=== PATIENT | male | born 1960 | race Two or more races ===

== ENCOUNTER 2019-10-21 13:02 | Inpatient (IN) | payer OTHER ==
[~2019-10-21] VITALS: Ht 185.4 cm; Wt 91.1 kg
[2019-10-21] MEDS ORDERED: methylPREDNISolone SOD SUCC 125 MG/2 ML VL IV ONE (13:30)
[2019-10-21] MEDS ORDERED: ALBUTEROL SULF 2.5 MG/0.5ML(0.5%) NEB SOLN NEB ONE (13:30)
[2019-10-21] MEDS ORDERED: IPRATROPIUM BROM 0.5 MG/2.5ML INH SOL NEB ONE (13:30)
[2019-10-21 14:25] LABS: Basophils # (auto) 0.1 10 ^3/uL (0-0.2); Eosinophils # (auto) 0 10 ^3/uL (0-0.8); Lymphocytes # (auto) 1.6 10 ^3/uL (0.4-5.4); Monocytes # (auto) 0.9 10 ^3/uL (0-1.3); Monocytes % (auto) 7.7 % (0.0-12.0)
[2019-10-21 14:27] LABS: Basophils % (auto) 0.9 % (0.0-2.0); Eosinophils % (auto) 0.2 % (0.0-7.0); Hemoglobin 13.9 g/dL (13.5-17.5); Lymphocytes % (auto) 13.6 % (10.0-50.0); Mean Corpuscular Hemoglobin 26.4 pg (28.0-32.0); Mean Corpuscular Hgb Conc. 31.6 g/dL (32.0-36.0); Mean Corpuscular Volume 83.5 fL (80.0-100.0); Neutrophils % (auto) 77.6 % (37.0-80.0); Platelet Count (auto) 305 10^3/uL (140-450); Red Blood Cells 5.27 10^6/uL (4.5-5.90); White Blood Cell 11.6 10^3/uL (4.4-10.8)
[2019-10-21 14:44] LABS: Albumin 2.7 g/dL (3.4-5.0); BUN/Creatinine Ratio 22.4; Calcium 8.2 mg/dL (8.5-10.1); Potassium 4.6 mmol/L (3.5-5.1)
[2019-10-21 14:47] LABS: INR 1.34 (0.9-1.15); Partial Thromboplastin Time 27.1 sec (23.64-32.05)
[2019-10-21 14:48] LABS: Bilirubin, Total 1.1 mg/dL (0.2-1.0); Total Protein 6.5 g/dL (6.4-8.2)
[2019-10-21] MEDS ORDERED: ENOXAPARIN SOD 100 MG/1 ML SYRINGE SC ONE (15:30)
[2019-10-21] MEDS ORDERED: IOHEXOL 350 MG/ML 100ML IJ ONE (15:54)
[2019-10-21] MEDS ORDERED: FUROSEMIDE 20 MG/2 ML VIAL IV ONE (18:00)
[2019-10-21] MEDS ORDERED: DexAMETHasone SOD PHOS 10MG/1ML VIAL INJ IV ONE (18:00)
[2019-10-21] MEDS ORDERED: NITROGLYCERIN 0.4 MG SL TAB SL PRN (19:30)
[2019-10-21] MEDS ORDERED: ONDANSETRON HCL 4 MG/2 ML VIAL IV PRN (19:30)
[2019-10-21] MEDS ORDERED: TEMAZEPAM 15 MG CAP PO PRN (19:30)
[2019-10-21] MEDS ORDERED: ACETAMINOPHEN 325 MG TAB PO PRN (19:30)
[2019-10-21] MEDS ORDERED: METOPROLOL TARTRATE 25 MG TAB PO ONE (19:30)
[2019-10-21] MEDS ORDERED: MORPHINE SULF INJ 2 MG/ML SYRINGE 1ML IV PRN (19:30)
[2019-10-21 22:35] VITALS: BP 142/92
--- NOTE | 2019-10-21 22:35 | NUR ---
Opening noteTelemetry admit from KYLEE G[facility]MEZ admitted to Telemetry unit after SBAR received. Patient oriented to ELLIS PAZ, RN primary RN, unit, room, bed, and unit policies regarding patient care and visiting hours. Patient now on continuous telemetry monitoring, tele box #7 and telemetry reading on arrival to unit is sinus tachy 104 HR. Patient placed on bedside oxygen, weighed by bedscale and encouraged to call if they need something. All questions and concerns addressed, patient verbalized understanding.
[2019-10-21] MEDS: ATORVASTATIN 20 MG TAB PO SCH (22:41)
[2019-10-21] MEDS: FAMOTIDINE 20 MG TAB PO SCH (22:41)
[2019-10-22] VITALS: BP 143/92
--- NOTE | 2019-10-22 04:16 | NUR ---
Closing note Patient is covid negative, gave sbar report to Lulu ERAZO, patient to be transferred to room 221. Patient and all of his belongings were sent with him. No sob or distress noted, Patient verbalized understanding of transfer, no questions at this time.
--- NOTE | 2019-10-22 04:20 | NUR ---
Received 59 y.o male pt from [facility] after receiving report from CASRTO Caceres. Pt awake and alert and oriented x4. Transfered to 221A via w/c. Carroll activity well. Immediately connected to O2 at 3.5 lpm via n/c. Pt able to transfer independently from w/c to bed. Bed in low position with HOB in Mcintosh's. Nurse call light attached to L HOB rail.
--- NOTE | 2019-10-22 04:55 | NUR ---
R breath sounds more increased than L with occ scattered rales. L lower lobe clear and diminished with upper lobe clear ant. Pt slowly talking more. Initially confused as to location. Pt knew he was in the hospital, but thought it was down the hill. Easily reoriented. BS soft and active to rounded soft abd. BLEs edematous with 1-2+ pitting in L lower leg and both ankles tight with hyperpigmention bilat.
[2019-10-22] MEDS: FUROSEMIDE 20 MG/2 ML VIAL IV SCH ×2 (06:20→18:00)
--- NOTE | 2019-10-22 07:30 | NUR ---
Opening Shift Note Assuming care of patient at this time. Patient is awake and alert. Patient denies pain. Patient shows no signs or symptoms of distress or shortness of breath. Bed is locked and lowered with side rails up x2. Instructed patient on the plan of care for today and to call for assistance as needed. Call light within reach. Will continue to round hourly and as needed.
[2019-10-22 09:00] VITALS: BP 143/90
[2019-10-22] MEDS: FAMOTIDINE 20 MG TAB PO SCH ×2 (09:28→22:28)
[2019-10-22] MEDS: ASPirin 81 mg TAB PO SCH (09:30)
[2019-10-22] MEDS: ENOXAPARIN SOD 40 MG/0.4 ML SYRINGE SC SCH (09:30)
[2019-10-22 09:42] LABS: Basophils # (auto) 0 10 ^3/uL (0-0.2); Eosinophils # (auto) 0 10 ^3/uL (0-0.8); Lymphocytes # (auto) 0.7 10 ^3/uL (0.4-5.4); Lymphocytes % (auto) 9.9 % (10.0-50.0); Mean Corpuscular Volume 84.7 fL (80.0-100.0); Monocytes # (auto) 0.4 10 ^3/uL (0-1.3); Monocytes % (auto) 5.2 % (0.0-12.0); Nucleated Red Blood Cells % 0.1 %; Red Cell Distribution Width 19.2 % (11.8-14.3)
[2019-10-22 09:44] LABS: Basophils % (auto) 0.2 % (0.0-2.0); Hematocrit 48.9 % (41.0-53.0); Hemoglobin 15.7 g/dL (13.5-17.5); Mean Corpuscular Hemoglobin 27.2 pg (28.0-32.0); Mean Corpuscular Hgb Conc. 32.1 g/dL (32.0-36.0); Neutrophils # (auto) 6.2 10 ^3/uL (1.6-8.6); Neutrophils % (auto) 84.7 % (37.0-80.0); Platelet Count (auto) 298 10^3/uL (140-450); Red Blood Cells 5.77 10^6/uL (4.5-5.90); White Blood Cell 7.3 10^3/uL (4.4-10.8)
[2019-10-22 10:07] LABS: BUN/Creatinine Ratio 20.7; Calcium 8.5 mg/dL (8.5-10.1); Potassium 4.3 mmol/L (3.5-5.1)
[2019-10-22] MEDS: METOPROLOL TARTRATE 50 MG TAB PO SCH ×2 (10:32→22:27)
[2019-10-22 13:00] VITALS: BP 111/70
[2019-10-22 17:00] VITALS: BP 97/59
[2019-10-22] MEDS: SPIRONOLACTONE 25 MG TAB PO SCH (18:26)
[2019-10-22] MEDS: Glucerna Carbsteady SHAKE Vanilla 8oz PO SCH (18:35)
--- NOTE | 2019-10-22 19:07 | NUR ---
Closing Shift Note Patient resting in bed. No distress noted. Report given. Will endorse care to the material handler 2nd shift RN.
--- NOTE | 2019-10-22 19:30 | NUR ---
Opening Shift Note Assumed care of patient, awake and alert reclining on L side watching television. RN noted pt taking deep breaths and widening eyes as if in discomfort or apprehensive. Pt denied pain or worry stating, "I am just full... and I didn't even eat it all." No other S/S of distress/SOB or pain; pt requiring no O2. Instructed on POC and to call for assist PRN; pt VU. RN will continue to monitor for changes Q1hr and PRN. Bed in low position with HOB in semi-Phillips's position. Nurse call light within pt's reach.
[2019-10-22 22:00] VITALS: BP 136/90
[2019-10-22] MEDS: ATORVASTATIN 20 MG TAB PO SCH (22:27)
--- NOTE | 2019-10-23 01:50 | NUR ---
Pt walking out of room into hallway; guided back to his room by hospital personnel. This RN responded to pt's room asking him where he was going. Pt replied that he was looking for / waiting on his grandfather. Informed pt that he is in [facility] and his grandfather is not here. Pt surprised. RN gave standby assist at pt returned to his bed; RN applied O2 via n/c. O2 sat 86. O2 at 3.5 lpm. Pt dropping off to sleep. BP 108/62 HR 88, RR 16. O2 sat increased after several minutes to 96 as long as pt breathing through nose. RN reminding pt twice to do this. Pt reclined in bed on R side and fell asleep. Low light in room and BR to help orient pt upon his awakening.
--- NOTE | 2019-10-23 03:05 | NUR ---
Called to pt's room by CASTRO Wiseman who stated pt's call light went on and he entered room to find pt unable to answer questions. Pt not answering questions for this RN or for fellow RN. Unable to state his name or anything else, grunts then resumes sleep. Color dusky. O2 sat 84; hands cold. Notified CASTRO Dolan,CN who responded to room as well as other RNs and CNAs. BG 171. Pt mouth breathing heavily; O2 sat remaining in mid 80s. RT paged to room. Heat packs given to pt to hold. This RN had covered pt prev with two blankets neither of which were on pt at this time. Pt voided in bed. HOB raised, pt beginning to rouse more with O2 placed between lips. Lewis Noonan, in to room. This RN supplying staff with pt's hx and current dx and meds. Team observed pt who began to smile and able to answer questions with increasing thoroughness. RT stated he will look in on pt freq for remainder of shift. NABIL and Lewis Obando left room. Pt has no drugs among his belonging in his bedside drawers.
[2019-10-23 05:21] VITALS: BP 108/83
[2019-10-23] MEDS: SPIRONOLACTONE 25 MG TAB PO SCH ×2 (05:25→18:30)
[2019-10-23] MEDS: FUROSEMIDE 20 MG/2 ML VIAL IV SCH ×2 (05:25→18:20)
[2019-10-23 06:36] LABS: Basophils # (auto) 0 10 ^3/uL (0-0.2); Eosinophils # (auto) 0 10 ^3/uL (0-0.8); Mean Corpuscular Hemoglobin 26.7 pg (28.0-32.0); White Blood Cell 9.3 10^3/uL (4.4-10.8)
[2019-10-23 06:39] LABS: Basophils % (auto) 0.2 % (0.0-2.0); Eosinophils % (auto) 0.1 % (0.0-7.0); Hematocrit 47.4 % (41.0-53.0); Hemoglobin 14.9 g/dL (13.5-17.5); Lymphocytes # (auto) 1.3 10 ^3/uL (0.4-5.4); Lymphocytes % (auto) 13.5 % (10.0-50.0); Mean Corpuscular Hgb Conc. 31.5 g/dL (32.0-36.0); Mean Corpuscular Volume 84.8 fL (80.0-100.0); Monocytes # (auto) 0.8 10 ^3/uL (0-1.3); Monocytes % (auto) 8.1 % (0.0-12.0); Neutrophils # (auto) 7.3 10 ^3/uL (1.6-8.6); Neutrophils % (auto) 78.1 % (37.0-80.0); Nucleated Red Blood Cells % 0.1 %; Platelet Count (auto) 238 10^3/uL (140-450); Red Blood Cells 5.59 10^6/uL (4.5-5.90); Red Cell Distribution Width 19.1 % (11.8-14.3)
[2019-10-23 06:47] LABS: Potassium 4.8 mmol/L (3.5-5.1)
--- NOTE | 2019-10-23 07:00 | NUR ---
22g cath used to start second saline lock on first attempt at R post. forearm. Pt kylee. well. After lock inserted and taped, pt having episode of gasping for breaths using mouth totally to breathe. This RN coaching him to close his mouth and breathe through his nose. Pt instead pushed n/c up against nose and brought breathing into calmer slower state then resumed sleep. Will endorse to day RN.
[2019-10-23 07:02] LABS: BUN/Creatinine Ratio 31.1; Calcium 8.4 mg/dL (8.5-10.1)
--- NOTE | 2019-10-23 07:30 | NUR ---
Opening Shift Note Assuming care of patient at this time. Patient is resting in bed with eyes closed. Patient shows no signs or symptoms of distress or shortness of breath. Bed is locked and lowered with side rails up x2. Will continue to round hourly and as needed.
[2019-10-23] MEDS: Glucerna Carbsteady SHAKE Vanilla 8oz PO SCH ×3 (08:00→18:30)
[2019-10-23] MEDS ORDERED: ADENOSINE 90 MG in GIVE UN-DILUTED 0 ML IV STA (08:30)
[2019-10-23 09:16] VITALS: BP 125/75
[2019-10-23] MEDS: ENOXAPARIN SOD 40 MG/0.4 ML SYRINGE SC SCH (10:00)
[2019-10-23] MEDS: FAMOTIDINE 20 MG TAB PO SCH ×2 (10:00→22:19)
[2019-10-23] MEDS: METOPROLOL TARTRATE 50 MG TAB PO SCH ×2 (10:00→22:19)
[2019-10-23] MEDS: ASPirin 81 mg TAB PO SCH (10:00)
[2019-10-23 12:52] VITALS: BP 139/94
[2019-10-23 17:03] VITALS: BP 138/89
--- NOTE | 2019-10-23 19:40 | NUR ---
Opening Shift Note Assumed care of patient, awake and alert. No S/S of distress/SOB or pain. Instructed on POC and to call for assist PRN, will continue to monitor for changes Q1hr and PRN.
--- NOTE | 2019-10-23 19:47 | NUR ---
Closing Shift Note Patient resting in bed with eyes closed. No distress noted. Report given. Will endorse care to the sales development associate RN.
[2019-10-23 22:00] VITALS: BP 124/73
[2019-10-23] MEDS: ATORVASTATIN 20 MG TAB PO SCH (22:20)
[2019-10-24 05:00] VITALS: BP 119/80
[2019-10-24] MEDS: FUROSEMIDE 20 MG/2 ML VIAL IV SCH ×2 (05:33→18:07)
[2019-10-24] MEDS: SPIRONOLACTONE 25 MG TAB PO SCH ×2 (05:46→18:08)
[2019-10-24 06:20] LABS: Basophils # (auto) 0 10 ^3/uL (0-0.2); Eosinophils # (auto) 0 10 ^3/uL (0-0.8); Lymphocytes # (auto) 1.3 10 ^3/uL (0.4-5.4); Mean Corpuscular Volume 84.4 fL (80.0-100.0); Neutrophils % (auto) 74.2 % (37.0-80.0); Nucleated Red Blood Cells % 0.1 %; Red Cell Distribution Width 19.3 % (11.8-14.3)
[2019-10-24 06:23] LABS: Basophils % (auto) 0.6 % (0.0-2.0); Eosinophils % (auto) 0.1 % (0.0-7.0); Hematocrit 47.3 % (41.0-53.0); Lymphocytes % (auto) 16.5 % (10.0-50.0); Mean Corpuscular Hemoglobin 26.7 pg (28.0-32.0); Mean Corpuscular Hgb Conc. 31.7 g/dL (32.0-36.0); Monocytes # (auto) 0.7 10 ^3/uL (0-1.3); Monocytes % (auto) 8.6 % (0.0-12.0); Neutrophils # (auto) 5.8 10 ^3/uL (1.6-8.6); Platelet Count (auto) 215 10^3/uL (140-450); Red Blood Cells 5.61 10^6/uL (4.5-5.90); White Blood Cell 7.8 10^3/uL (4.4-10.8)
[2019-10-24 06:37] LABS: Calcium 8.3 mg/dL (8.5-10.1); Potassium 4.5 mmol/L (3.5-5.1)
[2019-10-24 06:42] LABS: BUN/Creatinine Ratio 31.5
[2019-10-24] MEDS: Glucerna Carbsteady SHAKE Vanilla 8oz PO SCH (08:00)
[2019-10-24 09:00] VITALS: BP 124/78
[2019-10-24] MEDS: FAMOTIDINE 20 MG TAB PO SCH ×2 (10:00→21:32)
[2019-10-24] MEDS: ENOXAPARIN SOD 40 MG/0.4 ML SYRINGE SC SCH (10:00)
[2019-10-24] MEDS: METOPROLOL TARTRATE 50 MG TAB PO SCH ×2 (11:11→21:36)
[2019-10-24] MEDS: ASPirin 81 mg TAB PO SCH (11:11)
[2019-10-24 13:00] VITALS: BP 142/100
[2019-10-24] MEDS ORDERED: LORazepam 2MG/ML-1ML VIAL IV ONE (13:30)
[2019-10-24] MEDS ORDERED: LEVOTHYROXINE SODIUM 25 MCG TAB PO ONE (13:30)
[2019-10-24 17:00] VITALS: BP 113/72
[2019-10-24] MEDS: Ensure Enlive Strawberry 8oz Bottle PO SCH (18:09)
--- NOTE | 2019-10-24 19:31 | NUR ---
Closing Shift Note Patient resting in bed with eyes closed. No distress noted. Report given. Will endorse care to the car shifter RN.
--- NOTE | 2019-10-24 19:35 | NUR ---
Communicated to dr gray of clarification on new order of Eliquis 2.5 mg and MRI results of stroke, if its ok to give eliquis. MD Gray advised to continue with order of Eliquis. Confirmed with MD Gray its ok to give. Also spoke to [facility] if its ok to give Eliquis and notified her of MRI results. [facility] said it was ok to give Eliquis. will carry out.
[2019-10-24 21:21] VITALS: BP 109/71
[2019-10-24] MEDS: APIXABAN 2.5 MG TAB PO SCH (21:32)
[2019-10-24] MEDS: ATORVASTATIN 20 MG TAB PO SCH (21:33)
[2019-10-25 05:00] VITALS: BP 121/86
[2019-10-25] MEDS: FUROSEMIDE 20 MG/2 ML VIAL IV SCH ×2 (05:59→18:00)
[2019-10-25] MEDS: SPIRONOLACTONE 25 MG TAB PO SCH ×2 (05:59→18:00)
[2019-10-25] MEDS: LEVOTHYROXINE SODIUM 25 MCG TAB PO SCH (06:23)
--- NOTE | 2019-10-25 07:30 | NUR ---
Opening Shift Note Assumed patient care from MARINA ERAZO. Patient currently laying on left side, no signs of distress. Respirations even and unlabored, patient denies shortness of breath at this time. Patient encouraged to use nasal canula, verbalized understanding but is refusing at this time. Safety precautions in place. Bed is locked and in lowest position, call light within reach. Will continue to monitor. Addendum: 10/26/19 at 1530 by CHIKIS SANCHEZ RN RN Patient's speech is clear/understandable although some slurring is noted (since 10/22 MARINA)
[2019-10-25] MEDS: Ensure Enlive Strawberry 8oz Bottle PO SCH ×2 (08:00→18:14)
[2019-10-25 09:00] VITALS: BP 119/76
[2019-10-25 09:07] LABS: Cholesterol 83 mg/dL (< 200); HDL Cholesterol 30 mg/dL (40-59); LDL Cholesterol 53 mg/dL (< 100); Triglycerides 86 mg/dL (< 150)
[2019-10-25] MEDS: APIXABAN 2.5 MG TAB PO SCH ×2 (10:25→21:39)
[2019-10-25] MEDS: METOPROLOL TARTRATE 50 MG TAB PO SCH ×2 (10:26→21:41)
[2019-10-25] MEDS: FAMOTIDINE 20 MG TAB PO SCH ×2 (10:26→21:41)
--- NOTE | 2019-10-25 11:30 | NUR ---
Patient rounds Patient currently laying supine in bed, denies pain and shortness of breath at this time. Patient is AOx4 and restless, but states he does not need anything at this time. Patient reminded on and educated about need for urine sample, patient verbalized understanding. Safety precautions in place, respirations even and unlabored, will continue to monitor.
[2019-10-25 13:00] VITALS: BP 112/64
--- NOTE | 2019-10-25 15:45 | NUR ---
Called Manager Development SS Spoke with Amada regarding patient's social service consult. Per Amada, Star with be speaking with patient regarding insurance status.
--- NOTE | 2019-10-25 15:58 | NUR ---
Nutrition Assessment Notes Please refer to link for full assessment notes. Est Energy needs: 2633-5406 kcals (23-25 kcal/kgBW) Est Protein needs: 114-140 gms/day (1.12-1.37 gm/kgBW) Will continue to monitor and reassess prn. Addendum: 10/25/19 at [address] Amended: Links added.
[2019-10-25 17:00] VITALS: BP 125/68
--- NOTE | 2019-10-25 17:31 | NUR ---
Family Spoke with patient's family regarding plan of care. Patient states he does not remember what happened on 10/22, states MD has not discussed diagnosis with him. Family educated that MD will discuss patient's diagnosis with patient/family and that it is outside of RN scope of practice to diagnose. Family and patient aware and verbalized understanding, patient/family aware of neuro consult that was placed and patient's requesting to speak with neurologist. Will notify neurologist.
--- NOTE | 2019-10-25 18:08 | NUR ---
Refused Meds Patient refusing medications at this time. States he wants to speak with a doctor before continuing with treatments. Patient is AOx4, arousable to name and able to follow directions. +4 strength of all extremities. Safety precautions in place, patient reoriented to call light and encouraged to call as needed. Will continue to monitor.
--- NOTE | 2019-10-25 18:33 | NUR ---
Urine Sample Sent Obtained urine sample, sent to labRoland powell.
[2019-10-25 20:00] VITALS: BP 125/68
[2019-10-25 20:37] LABS: Urine Bacteria NONE SEEN /hpf (None Seen); Urine Blood Negative /uL (Negative); Urine Specific Gravity 1.021 (1.001-1.035); Urine WBC 1 /hpf (0 - 3)
[2019-10-25 20:44] LABS: Alcohol, Urine < 3.0 mg/dL (0-10); Amphetamine Screen, Urine NEGATIVE (NEGATIVE); Barbiturate Scree,Urine NEGATIVE (NEGATIVE); Benzodiazephine Screen, Urine NEGATIVE (NEGATIVE); Cannabinoid Screen, Urine NEGATIVE (NEGATIVE); Cocaine Screen, Urine NEGATIVE (NEGATIVE); Opiate Scree,Urine NEGATIVE (NEGATIVE); Phencyclidine Screen, Urine NEGATIVE (NEGATIVE)
[2019-10-25] MEDS: ATORVASTATIN 20 MG TAB PO SCH (21:41)
--- NOTE | 2019-10-25 22:00 | NUR ---
PT GIVEN BEDBATH WITH NEW GOWN AND CLEAN LINEN. DENIES PAIN. WILL CONTINUE TO MONITOR.
[2019-10-25 22:19] VITALS: BP 123/81
[2019-10-26 05:00] VITALS: BP 113/75
[2019-10-26] MEDS: FUROSEMIDE 20 MG/2 ML VIAL IV SCH (06:17)
[2019-10-26] MEDS: SPIRONOLACTONE 25 MG TAB PO SCH ×2 (06:17→17:54)
[2019-10-26] MEDS: LEVOTHYROXINE SODIUM 25 MCG TAB PO SCH (06:17)
--- NOTE | 2019-10-26 06:50 | NUR ---
PT REFUSES TO WEAR GOWN. COVERED WITH A BLANKET. CALL LIGHT IN REACH WITH OXYGEN ON.
--- NOTE | 2019-10-26 07:30 | NUR ---
Opening Shift Note Assumed patient care from [facility] RN, [place]. Patient currently laying on right side. Answers questions appropriately. Patient is AOx4 but has periods of forgetfulness, RN asked patient if he remembered speaking with Dr. Duffy, patient states he remembers speaking with MD but states he does not recall content of conversation. Patient call light within reach, patient encouraged to call PRN. Safety precautions in place, will continue to monitor.
--- NOTE | 2019-10-26 07:32 | NUR ---
REPORT GIVEN TO CHIKIS ERAZO.
[2019-10-26 07:57] LABS: Calcium 8.5 mg/dL (8.5-10.1); Potassium 4.4 mmol/L (3.5-5.1)
[2019-10-26 08:00] LABS: BUN/Creatinine Ratio 34.6
[2019-10-26 09:00] VITALS: BP 111/79
--- NOTE | 2019-10-26 09:50 | NUR ---
at Station Spoke with Dr. Gray regarding possible left heart cath tomorrow. Per MD, no intervention until patient is stable, no plan for left heart cath tomorrow at this time.
[2019-10-26] MEDS: APIXABAN 2.5 MG TAB PO SCH ×2 (09:51→22:15)
[2019-10-26] MEDS: METOPROLOL TARTRATE 50 MG TAB PO SCH ×2 (09:51→22:16)
[2019-10-26] MEDS: FAMOTIDINE 20 MG TAB PO SCH ×2 (09:51→22:16)
[2019-10-26] MEDS: Ensure Enlive Strawberry 8oz Bottle PO SCH ×2 (09:52→17:54)
--- NOTE | 2019-10-26 11:00 | NUR ---
Up with PT Patient ambulated around station with physical therapist. No sign of distress at this time.
[2019-10-26] MEDS ORDERED: DOCUSATE SOD 100 MG CAP PO PRN (12:00)
[2019-10-26 13:00] VITALS: BP 103/76
--- NOTE | 2019-10-26 15:24 | NUR ---
at Bedside Dr. Knapp at bedside discussing plan of care with patient. Dr. Knapp re-explained to patient that he had a stroke and that we are pending possible angiogram. Patient verbalized understanding. MD informed patient and this RN that she had spoke with his next of kin regarding patient status and plan of care. Patient shows no signs of distress at this time, respirations even and unlabored. Patient is AOx4, although speech continues to be slurred but clear/understandable. Will continue to monitor.
[2019-10-26 16:57] VITALS: BP 118/84
--- NOTE | 2019-10-26 19:10 | NUR ---
opening note pt AxO to self, place, and situation. confused to time. respirations even and nonlabored on 2L nc. pt denies pain or discomfort at this time, will continue to monitor. pt is ambulatory. POC discussed, pt verbalized understanding . bed in low locked position, call light within reach.
[2019-10-26] MEDS: ATORVASTATIN 20 MG TAB PO SCH (22:15)
[2019-10-26] MEDS: ENALAPRIL MALEATE 2.5 MG TAB PO SCH (22:17)
[2019-10-27 05:05] VITALS: BP 116/78
[2019-10-27] MEDS: SPIRONOLACTONE 25 MG TAB PO SCH ×2 (05:58→17:50)
[2019-10-27] MEDS: LEVOTHYROXINE SODIUM 25 MCG TAB PO SCH (05:59)
--- NOTE | 2019-10-27 07:00 | NUR ---
Opening Shift Note Assumed patient care from NOC RN. Patient currently resting with eyes closed, laying on right side. Respirations even and unlabored, no signs of distress at this time. Safety precautions in place. Will continue to monitor.
--- NOTE | 2019-10-27 07:01 | NUR ---
closing note pt resting in left lateral position with eyes closed. respirations even and nonlabored on 2Lnc. no s/s of pain or discomfort. endorsed care to day shift RN Vero. bed in low locked position, call light within reach.
[2019-10-27 09:21] VITALS: BP 127/69
[2019-10-27] MEDS ORDERED: PHYTONADIONE(VitK) ORAL Susp 10mg/10ml(1mg/ml) PO ONE (09:30)
--- NOTE | 2019-10-27 09:40 | NUR ---
Attempted PT treatment, pt requested PM treatment due to fatigue. Will attempt again this afternoon.
[2019-10-27] MEDS: FUROSEMIDE 20 MG/2 ML VIAL IV SCH (09:58)
[2019-10-27] MEDS: APIXABAN 2.5 MG TAB PO SCH ×2 (09:59→21:59)
[2019-10-27] MEDS: ENALAPRIL MALEATE 2.5 MG TAB PO SCH ×2 (09:59→22:00)
[2019-10-27] MEDS: METOPROLOL TARTRATE 50 MG TAB PO SCH ×2 (09:59→21:59)
[2019-10-27] MEDS: FAMOTIDINE 20 MG TAB PO SCH ×2 (09:59→22:00)
--- NOTE | 2019-10-27 10:00 | NUR ---
at bedside Dr. Walton at bedside discussing plan of care with patient.
[2019-10-27] MEDS: Ensure Enlive Strawberry 8oz Bottle PO SCH ×2 (11:33→17:51)
[2019-10-27 13:00] VITALS: BP 113/71
--- NOTE | 2019-10-27 13:53 | NUR ---
Ambulated Patient ambulated in hallway with physical therapy.
--- NOTE | 2019-10-27 14:26 | NUR ---
assessment re: ss consult no insurance Patient is a 59 year old male who is alert and oriented. Prior to admission patient lived home with friends and functioned independently. Patient informed me he is able to care for his own ADLs. Per patient he will return home to his prior living arrangements post discharge and will have transport home. Patient has no insurance. Patient has been assessed by Star Nobles of [facility]. Per Star patients Medi-opal is pending. I have provided patient with resources for [facility], Dr. Briscoe, and [facility] urgent care for follow up visits. I have provided patient with a prescription card from community assistance program. I informed patient his post discharge needs to be determined prior to discharge. I informed patient he has a right to speak to a rn social work regarding all care. I informed patient he has a right to participate in any and all discharge planning. Patient does not have a POA and advanced directive. I have offered patient information on POA and advanced directives. I informed the patient the advantages and benefits of having an Advanced Directive. Patient verbalized understanding and agreed to discharge plan. Addendum: 10/27/19 at 1430 by Amada HARVEY Amended: Links added.
--- NOTE | 2019-10-27 15:46 | NUR ---
Informed Consent Patient unable to sign informed consent at this time; requesting to speak with Dr. Gray regarding procedure/questions. Patient AOx4, no signs of distress at this time, respirations even and unlabored. Will continue to monitor.
[2019-10-27 17:00] VITALS: BP 121/73
--- NOTE | 2019-10-27 18:46 | NUR ---
at Station Dr. Duffy at station, discussed POC.
--- NOTE | 2019-10-27 19:00 | NUR ---
Assumed patient care Patient currently resting with eyes closed, laying on left side. Respirations even and unlabored, no signs of distress or pain at this time. Safety precautions in place. Instructed on POC and to call for assist PRN, will continue to monitor.
[2019-10-27] MEDS: ATORVASTATIN 20 MG TAB PO SCH (21:59)
[2019-10-27 22:00] VITALS: BP 99/64
[2019-10-28 05:00] VITALS: BP 119/78
[2019-10-28] MEDS: SPIRONOLACTONE 25 MG TAB PO SCH (05:58)
[2019-10-28] MEDS: LEVOTHYROXINE SODIUM 25 MCG TAB PO SCH (05:59)
[2019-10-28 06:55] LABS: Basophils # (auto) 0 10 ^3/uL (0-0.2); Basophils % (auto) 0.4 % (0.0-2.0); Eosinophils # (auto) 0.1 10 ^3/uL (0-0.8); Eosinophils % (auto) 0.8 % (0.0-7.0); Hematocrit 45.1 % (41.0-53.0); Hemoglobin 14.9 g/dL (13.5-17.5); Lymphocytes # (auto) 1.5 10 ^3/uL (0.4-5.4); Lymphocytes % (auto) 16.5 % (10.0-50.0); Mean Corpuscular Hemoglobin 27.3 pg (28.0-32.0); Mean Corpuscular Hgb Conc. 32.9 g/dL (32.0-36.0); Mean Corpuscular Volume 82.8 fL (80.0-100.0); Monocytes % (auto) 10.6 % (0.0-12.0); Neutrophils # (auto) 6.4 10 ^3/uL (1.6-8.6); Neutrophils % (auto) 71.7 % (37.0-80.0); Nucleated Red Blood Cells % 0.2 %; Platelet Count (auto) 186 10^3/uL (140-450); Red Blood Cells 5.45 10^6/uL (4.5-5.90); Red Cell Distribution Width 18.9 % (11.8-14.3); White Blood Cell 8.9 10^3/uL (4.4-10.8)
--- NOTE | 2019-10-28 07:00 | NUR ---
Opening Shift Note Received report on the patient. Awake lying in bed. Patient shows no signs of distress at this time. Discussed the plan of care with the patient. Bed in lowest position, side rails up x2, and the call light is within reach.
[2019-10-28 07:06] LABS: INR 1.21 (0.9-1.15)
[2019-10-28 07:24] LABS: Potassium 5.2 mmol/L (3.5-5.1)
[2019-10-28 07:28] LABS: BUN/Creatinine Ratio 27.9; Calcium 8.5 mg/dL (8.5-10.1)
[2019-10-28] MEDS: Ensure Enlive Strawberry 8oz Bottle PO SCH ×2 (08:00→18:03)
[2019-10-28 09:00] VITALS: BP 126/88
[2019-10-28] MEDS ORDERED: SODIUM ZIRCONIUM CYCL 10 GM PAK PO ONE (09:30)
[2019-10-28] MEDS: APIXABAN 2.5 MG TAB PO SCH ×2 (09:33→22:45)
[2019-10-28] MEDS: FUROSEMIDE 20 MG/2 ML VIAL IV SCH (09:42)
[2019-10-28] MEDS: FAMOTIDINE 20 MG TAB PO SCH ×2 (09:43→22:45)
[2019-10-28] MEDS: METOPROLOL TARTRATE 50 MG TAB PO SCH ×2 (10:00→22:00)
--- NOTE | 2019-10-28 11:56 | NUR ---
Nutrition Followup Note Wt 101.4kg Pt was sleeping with no family at bedside at time of rounds. Pt with NPO diet order for LHC, pt with fair po intake prior to NPO diet order with 61% avg po intake x 2 days per RN note. Will monitor pt po intake following LHC. Please refer to link for full assessment notes. Est Energy needs: 2057-9642 kcals (23-25 kcal/kgBW) Est Protein needs: 114-140 gms/day (1.12-1.37 gm/kgBW) Will continue to monitor and reassess prn. Labs: BUN 36H, Alb 2.2L BM: pt with 1 Bm 10/23 per RN note Skin: Bs 18 mod risk, full details in healthcare social worker note PES: 1) Overweight r/t energy intake in excess of energy needs aeb 122% IBW and BMI of 29.7 kg/m2 2) Altered nutrition related lab values r/t current medical condition aeb hyperglycemia, hypocalcemia, mod hypoalbuminemia Comments :Will continue to monitor PO status, skin status, pertinent labs and weight trends. Will f/u in 3-5 days. 1) Continue to closely monitor pt PO intake to meet at least 75% of meals 2) Refer pt to OP RD for nutrition/wt management education upon D/C 3) Continue current plan of care Expected Outcomes/Goals: Pt to see a RD for nutrition/wt management nutrition education after D/C Pt appetite to improve Pt labs to improve
--- NOTE | 2019-10-28 12:01 | NUR ---
Patient down to research laboratory manager. No signs of distress at this time.
[2019-10-28] MEDS ORDERED: SODIUM CHL 0.9% 50 ML ONE (12:24)
[2019-10-28] MEDS ORDERED: MIDAZOLAM HCL 1MG/1ML-2 ML VIAL ONE (12:24)
[2019-10-28] MEDS ORDERED: IOHEXOL 350 MG/ML 100ML IJ ONE (12:24)
[2019-10-28] MEDS ORDERED: fentaNYL CITRATE 100 MCG/2 ML VL ONE (12:24)
[2019-10-28] MEDS ORDERED: ANGIOMAX 250 MG VIAL IV ONE (12:24)
[2019-10-28] MEDS ORDERED: LIDOCAINE 2%HCL (LOCAL ANESTH.) INJ 20ML MDV ONE (12:24)
[2019-10-28 13:00] VITALS: BP 139/95
[2019-10-28] MEDS ORDERED: CLOPIDOGREL 300 MG TAB ONE (13:17)
[2019-10-28 17:00] VITALS: BP 110/77
--- NOTE | 2019-10-28 19:00 | NUR ---
Opening Note Assumed care of patient, awake and alert, patient denies distress/SOB or pain. O2 at 2LPM via nasal canula. Instructed on POC and to call for assist PRN, will continue to monitor.
[2019-10-28 22:21] VITALS: BP 95/66
[2019-10-28] MEDS: ATORVASTATIN 20 MG TAB PO SCH (22:45)
[2019-10-29 05:12] VITALS: BP 116/62
[2019-10-29] MEDS: LEVOTHYROXINE SODIUM 25 MCG TAB PO SCH (05:16)
[2019-10-29 09:49] LABS: Eosinophils # (auto) 0 10 ^3/uL (0-0.8); Eosinophils % (auto) 0.4 % (0.0-7.0); Monocytes # (auto) 0.8 10 ^3/uL (0-1.3)
[2019-10-29 09:51] LABS: Basophils # (auto) 0.1 10 ^3/uL (0-0.2); Basophils % (auto) 0.8 % (0.0-2.0); Hematocrit 46.3 % (41.0-53.0); Hemoglobin 14.6 g/dL (13.5-17.5); Lymphocytes # (auto) 0.8 10 ^3/uL (0.4-5.4); Lymphocytes % (auto) 10.2 % (10.0-50.0); Mean Corpuscular Hemoglobin 26.4 pg (28.0-32.0); Mean Corpuscular Hgb Conc. 31.6 g/dL (32.0-36.0); Mean Corpuscular Volume 83.4 fL (80.0-100.0); Monocytes % (auto) 9.5 % (0.0-12.0); Neutrophils # (auto) 6.4 10 ^3/uL (1.6-8.6); Neutrophils % (auto) 79.1 % (37.0-80.0); Nucleated Red Blood Cells % 0.1 %; Platelet Count (auto) 181 10^3/uL (140-450); Red Blood Cells 5.56 10^6/uL (4.5-5.90); Red Cell Distribution Width 18.6 % (11.8-14.3); White Blood Cell 8.1 10^3/uL (4.4-10.8)
[2019-10-29] MEDS ORDERED: CLOPIDOGREL BISULFATE 75 MG TAB PO SCH (10:00)
[2019-10-29 10:06] VITALS: BP 113/65
[2019-10-29 10:07] LABS: Calcium 8.2 mg/dL (8.5-10.1); Potassium 4.4 mmol/L (3.5-5.1)
[2019-10-29 10:10] LABS: BUN/Creatinine Ratio 23.8
[2019-10-29] MEDS: Ensure Enlive Strawberry 8oz Bottle PO SCH (10:15)
[2019-10-29] MEDS: METOPROLOL TARTRATE 50 MG TAB PO SCH (10:15)
[2019-10-29] MEDS: FUROSEMIDE 20 MG/2 ML VIAL IV SCH (10:15)
[2019-10-29] MEDS: FAMOTIDINE 20 MG TAB PO SCH (10:16)
[2019-10-29] MEDS: APIXABAN 2.5 MG TAB PO SCH (10:16)
[2019-10-29 10:47] VITALS: BP 113/65
[2019-10-29 13:00] VITALS: BP 123/89
--- NOTE | 2019-10-29 15:10 | NUR ---
DISCHARGE INSTRUCTIONS PROVIDED TO PT. PT VERBALIZED UNDERSTANDING FOR PRESCRIPTION ORDERS AND FOLLOW UP APPOINTMENT. PT EDUCATED ON PRESCRIPTION SCHEDULING. EDUCATIONAL MATERIAL PROVIDED, ALL QUESTIONS AND CONCERNS ADDRESSED. PT VERBALIZED UNDERSTANDING FOR FOLLOW UP WITH BEEF CATTLE FARMER AND NEUROLOGIST. IV CATHETER DC TO LAC#20, RW#22, CATHETER INTACT, NO PHLEBITIS, TELE BOX REMOVED AND RETURNED TO TELE DEPT. PT AWAITING TRANSPORT.
--- NOTE | 2019-10-29 17:49 | NUR ---
PATIENT REPORTS TRANSPORT WILL NOT ARRIVE. CALLED CONTRERAS (NEXT OF KIN) CONTRERAS STATES SHE WILL NOT BE ABLE TO PROVIDE TRANSPORT. TAXI VOUCHER PROVIDED FOR TRANSPORT. CHARGE NURSE MADE AWARE.
--- NOTE | 2019-10-29 18:34 | NUR ---
TRANSPORT ARRIVED PT TRANSPORTED OUT OF UNIT VIA WHEELCHAIR. NO S/S OF DISTRESS.
== END 2019-10-29 18:30 | disposition home or self-care (01) | DRG 174 ==
LOC: EDBD 13:02 → ER 13:02 → TELE 13:03 → TELE-EAST 10-22 00:48 → TELE-CENTR 10-22 04:41
PROVIDERS: ADMIT Nurse Practitioner; ATTEND Internal Medicine
PROC: 02703DZ Dilation of Coronary Artery, One Artery with Intraluminal Device, Percutaneous Approach (ICD-10-PCS; principal; 2019-10-28)
PROC: B211YZZ Fluoroscopy of Multiple Coronary Arteries using Other Contrast (ICD-10-PCS; 2019-10-28)
PROC: B215YZZ Fluoroscopy of Left Heart using Other Contrast (ICD-10-PCS; 2019-10-28)
PROC: 4A023N7 Measurement of Cardiac Sampling and Pressure, Left Heart, Percutaneous Approach (ICD-10-PCS; 2019-10-28)
DX: I21.4 Non-ST elevation (NSTEMI) myocardial infarction (principal); I13.0 Hypertensive heart and chronic kidney disease with heart failure and stage 1 through stage 4 chronic kidney disease, or unspecified chronic kidney disease; I50.43 Acute on chronic combined systolic (congestive) and diastolic (congestive) heart failure; I16.0 Hypertensive urgency; N17.0 Acute kidney failure with tubular necrosis; E43 Unspecified severe protein-calorie malnutrition; I63.9 Cerebral infarction, unspecified; D68.9 Coagulation defect, unspecified; G62.9 Polyneuropathy, unspecified; J45.909 Unspecified asthma, uncomplicated; N18.9 Chronic kidney disease, unspecified; E03.9 Hypothyroidism, unspecified; E78.5 Hyperlipidemia, unspecified; E87.5 Hyperkalemia; Z79.02 Long term (current) use of antithrombotics/antiplatelets; Z79.01 Long term (current) use of anticoagulants; Z79.899 Other long term (current) drug therapy; Z91.19 Patient's noncompliance with other medical treatment and regimen; I25.5 Ischemic cardiomyopathy; I42.0 Dilated cardiomyopathy; F17.210 Nicotine dependence, cigarettes, uncomplicated; I07.1 Rheumatic tricuspid insufficiency; J98.11 Atelectasis; R18.8 Other ascites; Z82.3 Family history of stroke; Z95.5 Presence of coronary angioplasty implant and graft; Z68.29 Body mass index [BMI] 29.0-29.9, adult; R47.81 Slurred speech; Z20.828 Contact with and (suspected) exposure to other viral communicable diseases
CPT/HCPCS: 36415; 70450; 70551; 71045; 71275; 78452; 80048; 80053; 80061; 80307; 81001; 83036; 83735; 83880; 84439; 84443; 84484; 85025; 85379; 85610; 85730; 87040; 92928; 93005; 93017; 93306; 93458; 93886; 93970; 94640; 96372; 96374; 96375; 97163; 97530; 99152; 99153; G0378; J0153; J1100; J2250